=== PATIENT | male | born 1965 | race Caucasian/White ===

== ENCOUNTER → 2021-12-23 13:02 | Outpatient (CLI) | payer MEDICARE, MEDICAID, SELFPAY ==
[2021-12-23 13:41] LABS: Add Manual Diff / Slide Review NO; Basophils Absolute Auto 100 /uL (0-100); Basophils Percent Auto 0.9 % (0-2); Eosinophils Absolute Auto 100 /uL (0-450); Eosinophils Percent Auto 0.9 % (2-4); Hematocrit 39.3 % (41-53); Hemoglobin 13.6 g/dL (13.5-17.5); Lymphocytes Absolute Auto 1500 /uL (1100-4500); Lymphocytes Percent Auto 25.1 % (25-40); Mean Corpuscular HGB Conc 34.5 % (30-36); Mean Corpuscular Hemoglobin 33.2 PG (26-34); Mean Corpuscular Volume 96.4 fL (80-100); Monocytes Absolute Auto 400 /uL (0-900); Monocytes Percent Auto 6.3 % (3-14); Neutrophils Absolute Auto 3900 /uL (1500-7000); Neutrophils Percent Auto 66.8 % (50-75); Platelet Count 233 X10^3/uL (150-400); Red Blood Cell Count 4.08 X10^6/uL (4.5-5.9); White Blood Cell Count 5.8 X10^3/uL (4.5-11.0)
[2021-12-23 13:52] LABS: HEMOLYSIS < 15 (0-50)
[2021-12-23 13:59] LABS: Alanine Aminotransferase 29 IU/L (<50); Albumin 4.1 g/dL (3.5-5.0); Albumin Globulin Ratio 1.5 (1.0-2.8); Alkaline Phosphatase 87 U/L (38-126); Aspartate Aminotransferase 37 IU/L (17-59); BUN Creatinine Ratio 21.6 (6-22); Bilirubin Total 0.5 mg/dL (0.2-1.3); Blood Urea Nitrogen 16 mg/dL (9-20); Calcium 8.8 mg/dL (8.4-10.2); Carbon Dioxide 25 mmol/L (22-32); Chloride 106 mmol/L (98-107); Cholesterol 167 mg/dL (140-199); Estimated Glomerular Filt Rate > 60 mL/min (>60); Globulin 2.8 g/dL (1.7-4.1); Glucose 94 mg/dL (70-100); HDL Cholesterol 60 mg/dL (40-60); LDL Cholesterol Calculated 97 mg/dL (<100); Potassium 4.1 mmol/L (3.4-5.1); Sodium 138 mmol/L (137-145); Total Protein 6.9 g/dL (6.3-8.2); Triglycerides 48 mg/dL (35-150)
[2021-12-23 14:29] LABS: TSH w/ Reflex to FT4 2.99 uIU/mL (0.47-4.68)
[2021-12-24 04:58] LABS: Prostate Specific Antigen Scrn 0.692 ng/mL (0.1-4.0)
== END ==
PROVIDERS: PCP Internal Medicine; Referring Provider Internal Medicine; Visit Provider Internal Medicine
DX: I10 Essential (primary) hypertension (principal); Z13.6 Encounter for screening for cardiovascular disorders; Z12.5 Encounter for screening for malignant neoplasm of prostate; Z13.220 Encounter for screening for lipoid disorders
CPT/HCPCS: 36415; 80053; 80061; 84443; 85025; G0103

== ENCOUNTER → 2023-01-06 15:15 | Outpatient (CLI) | payer MEDICARE, MEDICAID, SELFPAY ==
[2023-01-06 16:36] LABS: Prostate Specific Antigen Scrn 2.47 ng/mL (0.1-4.0)
== END ==
PROVIDERS: PCP Internal Medicine; Referring Provider Internal Medicine; Visit Provider Internal Medicine
DX: Z12.5 Encounter for screening for malignant neoplasm of prostate (principal)
CPT/HCPCS: 36415; G0103

== ENCOUNTER → 2024-05-10 10:30 | Outpatient (CLI) | payer MEDICARE, MEDICAID, SELFPAY ==
[2024-05-10 12:56] LABS: Prostate Specific Antigen Scrn 1.18 ng/mL (0.1-4.0)
== END ==
PROVIDERS: PCP Internal Medicine; Referring Provider Internal Medicine; Visit Provider Internal Medicine
DX: Z12.5 Encounter for screening for malignant neoplasm of prostate (principal)
CPT/HCPCS: 36415; G0103

== ENCOUNTER 2024-08-10 15:03 | Emergency (ER) | payer MEDICARE, MEDICAID, SELFPAY ==
[2024-08-10 15:40] VITALS: BP 98/62; PULSE 64; RESP 18; TEMP 37; O2SAT 98; BMI 19.5
[2024-08-10] MEDS: TET,DIPH,PERTUSS(ACELL),VAC/PF 0.5 ML SYRINGE IM (17:46)
[2024-08-10 17:51] VITALS: BP 112/70; PULSE 55; O2SAT 96
--- NOTE | 2024-08-10 19:24 | ED.WOUNDLAC ---
HPI - Wound/Laceration General Chief Complaint: Wound/Laceration Stated Complaint: animal bite Time Seen by Provider: 08/10/24 19:19 Source: patient Mode of arrival: Ambulatory History of Present Illness HPI narrative: 59-year-old male without any significant past medical history presents to the ED for evaluation of dog bite to his left upper extremity, he states that he went to his friend's house methadone for the 1st time and got ?attacked he states that he has not sure of the vaccination status of the dog, he states that he is does not like vaccines therefore is not up-to-date O2 his tetanus. He denies using any blood thinners denies any injuries, states that it was just a few cuts on his left upper extremity denies any actual pain. Related Data Previous Rx's Medication Instructions Recorded amoxicillin 875 mg-potassium 1 tab PO BID 1 week #14 tabs 08/10/24 clavulanate 125 mg tablet Allergies Allergy/AdvReac Type Severity Reaction Status Date / Time No Known Drug Allergies Allergy Verified 08/10/24 15:41 Review of Systems Review of Systems Narrative: General: Denies fever, chills, weight loss HEENT: Denies headache, eye drainage, eye irritation, head trauma, sore throat, voice change Cardiovascular: Denies any chest pain, palpitations, shortness of breath, tachycardia Respiratory: Denies any shortness of breath, cough, wheeze, stridor GI/: Denies any abdominal pain, nausea, vomiting, diarrhea, bright red blood per rectum, melanotic stools, urinary frequency, urinary retention, dysuria, hematuria MSK: Denies any joint pain, muscle pains, swelling Skin: Multiple abrasions noted to patient's left upper extremity no lacerations Neuro: Denies any headache, lightheadedness, dizziness, fainting, weakness Psych: Denies SI/HI Patient History Medical History No pertinent past medical history Surgical History No pertinent past surgical history Family History Brother Esophageal cancer Social History (Updated 05/10/24 @ 10:25 by Felipe Barrera MD) Smoking Status: Former smoker Smoking Status: Former smoker Exam Narrative Exam Narrative: General: Cooperative, comfortable, well-developed, not in acute distress HEENT: Normocephalic, atraumatic, PERRLA, normal sclera, eyelids normal, Neck: Active full range of motion, atraumatic Chest: Normal to inspection, negative crepitus, no overlying erythema ecchymosis Respiratory: Normal respiratory effort, not in acute respiratory distress, clear to auscultation bilaterally negative cough, wheeze, tachypnea, rhonchi, rales Cardiology: Regular rate rhythm negative gallop, murmur, rubs GI/: Normal to inspection, soft, nonrigid, no tenderness to palpation, exam deferred MSK: Full range of active range of motion of all 4 extremities, atraumatic, neurovascularly intact no crepitus Skin: Scattered abrasions to the left upper extremity not actively bleeding no puncture wounds no laceration Neuro: Alert awake oriented x3, moves all 4 extremities spontaneously, cranial nerves intact, able to answer all questions appropriately follows commands appropriately Psych: Cooperative, negative suicidal or homicidal ideations Initial Vital Signs Initial Vital Signs: Vital Signs Temperature 98.6 F 08/10/24 15:40 Pulse Rate 64 08/10/24 15:40 Respiratory Rate 18 08/10/24 15:40 Blood Pressure 98/62 08/10/24 15:40 Pulse Oximetry 98 08/10/24 15:40 Oxygen Delivery Method Room Air 08/10/24 15:40 Course Orders Ordered: Discontinued Medications Amoxicillin/Clavulanate Potassium (Amoxicillin/Clav 875/125 Mg) 1 tab PO NOW ONE Stop: 08/10/24 19:20 Diphtheria/Tetanus/Acell Pertussis (Tet,Diph,Pertuss(Acell),Vac/Pf 0.5 Ml Syringe) 0.5 ml IM .ONCE ONE Stop: 08/10/24 17:07 Last Admin: 08/10/24 17:46 Dose: 0.5 ml Documented By: GHADA Vital Signs Vital signs: Vital Signs - 8 hr 08/10/24 15:40 08/10/24 17:51 Temperature 98.6 F Pulse Rate 64 55 L Respiratory Rate 18 Blood Pressure 98/62 112/70 Pulse Oximetry 98 96 Oxygen Delivery Method Room Air Room Air MDM - Wound/Laceration Differential Diagnosis Differential diagnosis: Likely laceration, abrasion and other (Dog bite) MDM Narrative Medical decision making narrative: 59-year-old male without any significant past medical history who does not believe in vaccines presents to the ED for dog bite. States that he was at a friend's house and their dog bit him to his left upper extremity, no lacerations just abrasions no puncture wounds neurovascularly intact, patient does not want tetanus or rabies vaccine or immunoglobulin, he states he does not believe in vaccines. I informed him of risks benefits of this he understands the risks and benefits of not receiving these vaccines. However patient is agreeable for prophylactic treatment of antibiotics, patient will be sent home with prophylactic antibiotics for animal bite, patient neurovascularly intact bilateral upper extremity no other injuries lacerations or concerns at this time. Strict return precautions given he verbalized understanding of this and agrees to being discharged home with outpatient follow up Discharge Plan Departure Patient Disposition: Home Clinical Impression: Dog bite Instructions: DI for Animal Bites Activity Restrictions/Additional Instructions: Please read the discharge instructions sheet carefully and bring all papers to all doctor follow-up visits, as it may contain information that your doctor may want to see. Disease processes change and evolve, if your symptoms worsen or if you develop any new symptoms that are concerning to you please return for evaluation. Your evaluation today does not show any evidence of any life-threatening/serious illnesses requiring admission to the hospital or surgery. Please follow-up with your doctor for re-evaluation in approximately 1 day. Seek immediate medical attention for any worrisome symptoms. *If you do not have a primary care provider please contact the [facility] Resource line at [phone]. They will ask some questions about your medical history and help get you set up with a doctor in the community. Prescriptions: New amoxicillin-pot clavulanate 875-125 mg tablet 1 tab PO BID 7 Days Qty: 14 0RF Referrals: Felipe Barrera MD [Primary Care Provider] - Stand Alone Forms: Patient Portal/API/Survey
[2024-08-10] MEDS: AMOXICILLIN/CLAV 875/125 MG 1 TAB PO (19:42)
[2024-08-10 19:56] VITALS: BP 96/60; PULSE 74; RESP 20; TEMP 36.4; O2SAT 97
== END 2024-08-10 20:00 | disposition home or self-care (01) ==
PROVIDERS: Emergency Provider Student in an Organized Health Care Education/Training Program; PCP Internal Medicine
DX: S41.152A Open bite of left upper arm, initial encounter (principal); W54.0XXA Bitten by dog, initial encounter; Z23 Encounter for immunization
CPT/HCPCS: 90471; 99283; 99284; 90715

== ENCOUNTER → 2024-10-15 14:59 | Outpatient (CLI) | payer MEDICARE, MEDICAID, SELFPAY ==
--- NOTE | 2024-10-15 15:00 | DI.RAD.S_ITS ---
PROCEDURE: XR CHEST 2V INDICATIONS: cough/pneumonia TECHNIQUE: 2 views of the chest were acquired. COMPARISON: None. FINDINGS: Surgical changes and devices: None. Lungs and pleura: Lungs are clear. No pleural effusions or pneumothorax. Mediastinum: Mediastinal contours are normal. Heart size is normal. Bones and chest wall: No suspicious bony abnormalities. Soft tissues appear unremarkable. IMPRESSION: No acute cardiopulmonary abnormality is seen. Dictated by: Deni Rosario M.D. on 10/16/2024 at 2:24 Approved by: Deni Rosario M.D. on 10/16/2024 at 2:25
[2024-10-15 15:28] LABS: Add Manual Diff / Slide Review NO; Basophils Absolute Auto 0 /uL (0-100); Basophils Percent Auto 0.5 % (0-2); Eosinophils Absolute Auto 100 /uL (0-450); Eosinophils Percent Auto 1.1 % (2-4); Hematocrit 39.5 % (41-53); Hemoglobin 13.8 g/dL (13.5-17.5); Lymphocytes Absolute Auto 1000 /uL (1100-4500); Lymphocytes Percent Auto 21.5 % (25-40); Mean Corpuscular HGB Conc 34.8 % (30-36); Mean Corpuscular Hemoglobin 32.4 PG (26-34); Monocytes Absolute Auto 400 /uL (0-900); Monocytes Percent Auto 9.6 % (3-14); Neutrophils Absolute Auto 3100 /uL (1500-7000); Neutrophils Percent Auto 67.3 % (50-75); Platelet Count 140 X10^3/uL (150-400); Red Blood Cell Count 4.25 X10^6/uL (4.5-5.9); Red Cell Distribution Width 13.5 % (11.6-14.8); White Blood Cell Count 4.7 X10^3/uL (4.5-11.0)
[2024-10-15 16:03] LABS: Alanine Aminotransferase 17 IU/L (<50); Albumin 3.8 g/dL (3.5-5.0); Albumin Globulin Ratio 1.4 (1.0-2.8); Alkaline Phosphatase 75 U/L (38-126); Aspartate Aminotransferase 27 IU/L (17-59); BUN Creatinine Ratio 12.9 (6-22); Bilirubin Total 0.7 mg/dL (0.2-1.3); Blood Urea Nitrogen 9 mg/dL (9-20); Calcium 8.7 mg/dL (8.4-10.2); Carbon Dioxide 27 mmol/L (22-32); Chloride 96 mmol/L (98-107); Estimated Glomerular Filt Rate > 60 mL/min (>60); Globulin 2.7 g/dL (1.7-4.1); Glucose 99 mg/dL (80-110); HEMOLYSIS < 15 (0-50); Potassium 4.6 mmol/L (3.4-5.1); Sodium 129 mmol/L (137-145); Total Protein 6.5 g/dL (6.3-8.2)
== END ==
PROVIDERS: PCP Internal Medicine; Referring Provider Internal Medicine; Visit Provider Internal Medicine
DX: J18.9 Pneumonia, unspecified organism (principal)
CPT/HCPCS: 36415; 71046; 80053; 85025

== ENCOUNTER 2024-11-05 16:42 | Emergency (ER) | payer MEDICARE, MEDICAID, SELFPAY ==
[2024-11-05 17:10] VITALS: BP 95/57; PULSE 62; RESP 16; TEMP 36.9; O2SAT 99; BMI 19.5
[2024-11-05 17:39] LABS: Appearance Urine UA CLEAR; Bilirubin Urine UA NEGATIVE (NEGATIVE); Color Urine UA YELLOW; Glucose Urine UA NEGATIVE (Negative); Ketones Urine UA NEGATIVE (NEGATIVE); Leukocyte Esterase Urine UA NEGATIVE (NEGATIVE); Nitrite Urine UA NEGATIVE (Negative); Occult Blood Urine UA NEGATIVE (Negative); Protein Urine UA NEGATIVE (Negative); Specific Gravity Urine UA <=1.005 (1.000-1.035); Urobilinogen Urine UA 0.2 E.U./dL (0.2); pH Urine UA 6.5 (4.5-8.0)
[2024-11-05 17:46] LABS: Bacteria Urine Occasional (0-1); RBC Urine 0-1/HPF (0-5/HPF); Squamous Epithelial Cell Urine 0-1 /HPF (0-5/HPF); Urine Volume 10mL (spun); WBC Urine 0-1/HPF (0-5/HPF)
[2024-11-05 17:47] LABS: Culture Indicated Urine Cult Not Indicated
--- NOTE | 2024-11-05 18:01 | ED.MALEGU ---
HPI - Male Genitourinary <Aracelis Medina PA-C - Last Filed: 11/05/24 18:14> General Chief complaint: Urogenital-Male Stated complaint: blood in underwear no wounds Time Seen by Provider: 11/05/24 17:25 Source: patient Mode of arrival: Ambulatory History of Present Illness HPI Narrative: 59-year-old male presents to the ED after finding blood in his underwear. Patient states that he wakes up at 3:00 a.m. to get ready for work, was cleaning his lower body when he noted wet blood in his underwear. Patient denies urinating or having a bowel movement just prior to that. Patient did have a bowel movement at 7:00 a.m. this morning which he states was as and without blood. Patient endorses this is the 1st time he is noting anything like this. Patient is not currently bleeding. No fever, chills, chest pain, shortness of breath, abdominal pain, dysuria, lightheadedness, dizziness, syncope. Patient comes in with the same bloody underwear which has some blood on it. Denies anal sex. Related Data Home Medications Medication Instructions Recorded Confirmed No Known Home Medications 10/15/24 10/15/24 Allergies Allergy/AdvReac Type Severity Reaction Status Date / Time No Known Drug Allergies Allergy Verified 11/05/24 17:15 Review of Systems <Aracelis Medina PA-C - Last Filed: 11/05/24 18:14> Constitutional Constitutional: Denies chills, Denies fatigue, Denies fever(s), Denies frequent falls, Denies lethargy and Denies weakness Eyes Eyes: Denies change in vision, Denies eye discharge, Denies irritation and Denies loss of vision ENT Ears, Nose, Mouth, and Throat: Denies change in voice, Denies dizziness, Denies neck pain, Denies sore throat and Denies throat swelling Cardiovascular Cardiovascular: Denies chest pain, Denies irregular heart rhythm, Denies lightheadedness, Denies palpitations, Denies dyspnea, Denies dyspnea on exertion and Denies orthopnea Respiratory Respiratory: Denies cough, Denies dyspnea, Denies dyspnea on exertion and Denies wheezing Gastrointestinal Gastrointestinal: Denies abdominal pain, Denies change in bowel habits, Denies diarrhea, Denies nausea and Denies vomiting Genitourinary Comments: Blood in underwear, source unknown Musculoskeletal Musculoskeletal: Denies neck pain and Denies numbness Integumentary/Breasts Skin/Breast: Denies pruritus, Denies erythema, Denies rash and Denies wounds Neurologic Neurologic: Denies behavioral changes, Denies confusion, Denies dizziness, Denies frequent falls, Denies loss of vision, Denies numbness and Denies weakness Psychiatric Psychiatric: Denies anxiety, Denies behavioral changes, Denies confusion, Denies depression, Denies homicidal ideation and Denies suicidal ideation Endocrine Endocrine: Denies fatigue, Denies flushing and Denies palpitations Hematologic/Lymphatic Hematologic/Lymphatic: Denies easy bruising Allergic/Immunologic Allergic/Immunologic: Denies urticaria, Denies throat swelling and Denies wheezing Patient History <Aracelis Medina PA-C - Last Filed: 11/05/24 18:14> Medical History No pertinent past medical history Surgical History No pertinent past surgical history Family History Brother Esophageal cancer Social History Smoking Status: Former smoker Smoking Status: Former smoker Exam <Aracelis Medina PA-C - Last Filed: 11/05/24 18:14> Narrative Exam Narrative: Const General:?cooperative, healthy appearing and comfortable [facility] Head:?normal to inspection Ears:?hearing grossly normal bilaterally Nose:?external nose normal Face and sinus:?normal facial exam and sinuses nontender Mouth:?oral mucosae normal Throat:?posterior oropharynx normal Eyes General:?appearance normal, both eyes and all related structures Neck Neck:?normal visual inspection and no lymphadenopathy noted Resp Effort & Inspection:?normal respiratory effort Auscultation:?clear to auscultation bilaterally Cardio Rate:?regular rate Rhythm:?regular rhythm External hemorrhoids noted on exam. No other source of possible bleeding or injury noted. Patient is not actively bleeding. Neuro General:?patient alert, patient awake and patient oriented x3 Initial Vital Signs Initial Vital Signs: Vital Signs Temperature 98.4 F 11/05/24 17:10 Pulse Rate 62 11/05/24 17:10 Respiratory Rate 16 11/05/24 17:10 Blood Pressure 95/57 L 11/05/24 17:10 Pulse Oximetry 99 11/05/24 17:10 Oxygen Delivery Method Room Air 11/05/24 17:10 <Diego Mark MD - Last Filed: 11/05/24 18:40> Initial Vital Signs Initial Vital Signs: Vital Signs Temperature 98.4 F 11/05/24 17:10 Pulse Rate 62 11/05/24 17:10 Respiratory Rate 16 11/05/24 17:10 Blood Pressure 95/57 L 11/05/24 17:10 Pulse Oximetry 99 11/05/24 17:10 Oxygen Delivery Method Room Air 11/05/24 17:10 Course <Aracelis Medina PA-C - Last Filed: 11/05/24 18:14> Orders Ordered: ED Orders 11/05/24 17:33 Urinalysis and Microscopic Stat Vital Signs Vital signs: Vital Signs - 8 hr 11/05/24 17:10 Temperature 98.4 F Pulse Rate 62 Respiratory Rate 16 Blood Pressure 95/57 L Pulse Oximetry 99 Oxygen Delivery Method Room Air <Diego Mark MD - Last Filed: 11/05/24 18:40> Orders Ordered: ED Orders 11/05/24 17:33 Urinalysis and Microscopic Stat Vital Signs Vital signs: Vital Signs - 8 hr 11/05/24 17:10 Temperature 98.4 F Pulse Rate 62 Respiratory Rate 16 Blood Pressure 95/57 L Pulse Oximetry 99 Oxygen Delivery Method Room Air MDM - Male Genitourinary <Aracelis Medina PA-C - Last Filed: 11/05/24 18:14> Lab Data Labs: Lab Results 11/05/24 Range/Units 17:33 Urine Color Yellow Urine Appearance Clear Urine pH 6.5 (4.5-8.0) Ur Specific [place] <=1.005 (1.000-1.035) Urine Protein Negative (Negative) Urine Glucose (UA) Negative (Negative) g/dL Urine Ketones Negative (NEGATIVE) Urine Occult Blood Negative (Negative) Urine Nitrate Negative (Negative) Urine Bilirubin Negative (NEGATIVE) Urine Urobilinogen 0.2 (0.2) E.U./dL Ur Leukocyte Esterase Negative (NEGATIVE) Urine RBC 0-1/hpf (0-5/HPF) Urine WBC 0-1/hpf (0-5/HPF) Ur Squamous Epith Cells 0-1 /hpf (0-5/HPF) Urine Bacteria Occasional (0-1) (None) Ur Culture Indicated? Cult not indicated Vol Urine Centrifuged 10ml (spun) MDM Narrative Medical decision making narrative: 59-year-old male presents to the ED after finding blood in his underwear. The external exam was positive for external hemorrhoids but no other signs of trauma/wounds which might indicate the source of bleeding. Patient is not actively bleeding in the ED. urinalysis was negative for UTI or blood. Discussed findings with patient. Recommend follow-up with PCP. Patient agrees to monitor and return to the ED if symptoms worsen. ED return precautions discussed with patient. Patient verbalized understanding. Medical records reviewed: Yes <Diego Mark MD - Last Filed: 11/05/24 18:40> Lab Data Labs: Lab Results 11/05/24 Range/Units 17:33 Urine Color Yellow Urine Appearance Clear Urine pH 6.5 (4.5-8.0) Ur Specific [place] <=1.005 (1.000-1.035) Urine Protein Negative (Negative) Urine Glucose (UA) Negative (Negative) g/dL Urine Ketones Negative (NEGATIVE) Urine Occult Blood Negative (Negative) Urine Nitrate Negative (Negative) Urine Bilirubin Negative (NEGATIVE) Urine Urobilinogen 0.2 (0.2) E.U./dL Ur Leukocyte Esterase Negative (NEGATIVE) Urine RBC 0-1/hpf (0-5/HPF) Urine WBC 0-1/hpf (0-5/HPF) Ur Squamous Epith Cells 0-1 /hpf (0-5/HPF) Urine Bacteria Occasional (0-1) (None) Ur Culture Indicated? Cult not indicated Vol Urine Centrifuged 10ml (spun) Discharge Plan Departure Patient Disposition: Home Clinical Impression: Blood in underwear Instructions: DI for Hemorrhoids Activity Restrictions/Additional Instructions: You were evaluated in the ED today for blood in the underwear. Your urine was normal. It is unclear the source of the bleeding, since there are no obvious injuries. Hemorrhoids were noted on exam, which could possibly be a cause of rectal bleeding. Please ensure good hydration and plenty of fiber to avoid constipation which can worsen the bleeding. You may take MiraLax nightly to avoid constipation as well. Please follow-up with your PCP as soon as possible. Return to the ED if you have worsening symptoms. Prescriptions: No Action No Known Home Medications Referrals: Felipe Barrera MD [Primary Care Provider] - Stand Alone Forms: Patient Portal/API/Survey, Work Release Note ED Sign-out <Diego Mark MD - Last Filed: 11/05/24 18:40> Cosign ED Attending Phoebeature Attestation: I was immediately available in the department for consultation. ?This documentation has been reviewed and I agree with assessment and plan. Supervised by Diego Mark MD
== END 2024-11-05 18:00 | disposition home or self-care (01) ==
PROVIDERS: Emergency Provider Student in an Organized Health Care Education/Training Program; PCP Internal Medicine
DX: R58 Hemorrhage, not elsewhere classified (principal)
CPT/HCPCS: 81001; 99281; 99282

== ENCOUNTER → 2025-04-30 13:50 | Outpatient (CLI) | payer MEDICARE, MEDICAID, SELFPAY ==
--- NOTE | 2025-04-30 13:53 | DI.RAD.S_ITS ---
PROCEDURE: XR CHEST 2V INDICATIONS: thoracic injury TECHNIQUE: 2 views of the chest were acquired. COMPARISON: [facility], CR, XR CHEST 2V, 10/15/2024, 15:02. FINDINGS: Surgical changes and devices: None. Lungs and pleura: Lungs are clear. No pleural effusions or pneumothorax. Mediastinum: Mediastinal contours are normal. Heart size is normal. Bones and chest wall: No suspicious bony abnormalities. Soft tissues appear unremarkable. IMPRESSION: No acute cardiopulmonary abnormality is seen. Dictated by: Jamar Lazcano M.D. on 04/30/2025 at 21:44 Approved by: Jamar Lazcano M.D. on 04/30/2025 at 21:44
--- NOTE | 2025-04-30 13:53 | DI.RAD.S_ITS ---
PROCEDURE: XR THORACIC SPINE 2V INDICATIONS: thoracic injury TECHNIQUE: 2 views of the thoracic spine were acquired. COMPARISON: None. FINDINGS: Bones: No fractures or dislocations. No suspicious bony lesions. 12 pairs of ribs are noted, and appear intact where visualized. Decreased osseous mineralization. Mild degenerative changes. Soft tissues: No paravertebral stripe thickening. IMPRESSION: No acute osseous abnormalities. Mild degenerative changes. Decreased osseous mineralization. Dictated by: Jamar Lazcano M.D. on 04/30/2025 at 21:43 Approved by: Jamar Lazcano M.D. on 04/30/2025 at 21:43
--- NOTE | 2025-04-30 13:53 | DI.RAD.S_ITS ---
PROCEDURE: XR LUMBAR SPINE 2-3V INDICATIONS: thoracic injury TECHNIQUE: 3 views of the lumbar spine were acquired. COMPARISON: None. FINDINGS: Bones: 5 [id number] vertebrae are present. Minimal levocurvature. Minimal anterolisthesis of L4 on L5. Possible mild height loss of L1. No suspicious bony lesions. Decreased osseous mineralization. Mild degenerative changes. Soft tissues: Overlying bowel gas pattern is normal. No suspicious soft tissue calcifications. IMPRESSION: Mild degenerative changes. Decreased osseous mineralization. Possible mild height loss of L1, correlate with point tenderness. No retropulsion. Dictated by: Jamar Lazcano M.D. on 04/30/2025 at 21:44 Approved by: Jamar Lazcano M.D. on 04/30/2025 at 21:46
== END ==
PROVIDERS: PCP Internal Medicine; Referring Provider Internal Medicine; Visit Provider Internal Medicine
DX: S20.229A Contusion of unspecified back wall of thorax, initial encounter (principal); M47.814 Spondylosis without myelopathy or radiculopathy, thoracic region; M47.816 Spondylosis without myelopathy or radiculopathy, lumbar region; X58.XXXA Exposure to other specified factors, initial encounter
CPT/HCPCS: 71046; 72070; 72100